=== PATIENT | female | born 1990 | race Caucasian/White ===

== ENCOUNTER 2025-05-28 07:09 | Emergency (ER) | payer MEDICAID ==
[~2025-05-28] VITALS: Ht 165.1 cm; Wt 58.2 kg
[~2025-05-28 07:09] MED LIST: ACET-2119 PO; CLIN-214 PO; IBUP-1984 PO
[2025-05-28 07:22] VITALS: BP 150/102; PULSE 87; RESP 16; TEMP 98.4; O2SAT 97
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
== END 2025-05-28 08:16 ==
LOC: ER 07:09
DX: Z00.00 Encounter for general adult medical examination without abnormal findings (principal); F31.9 Bipolar disorder, unspecified; F15.90 Other stimulant use, unspecified, uncomplicated; F14.90 Cocaine use, unspecified, uncomplicated; F11.90 Opioid use, unspecified, uncomplicated; F41.9 Anxiety disorder, unspecified; F17.200 Nicotine dependence, unspecified, uncomplicated; Z87.442 Personal history of urinary calculi; Z88.2 Allergy status to sulfonamides; Z88.0 Allergy status to penicillin; Z79.899 Other long term (current) drug therapy; Z72.89 Other problems related to lifestyle
CPT/HCPCS: 99283